=== PATIENT | female | born 1985 | race Caucasian/White ===

== ENCOUNTER 2019-10-08 22:48 | Emergency (ER) | payer MEDICAID ==
[~2019-10-08] VITALS: Ht 165.1 cm; Wt 55.0 kg
[2019-10-08 23:28] VITALS: BP 127/85
[2019-10-08] MEDS ORDERED: DOXY100C43 PO (23:53)
[2019-10-08] MEDS ORDERED: LIDOcaine 1% w/epiNEPHrine 1:200,000 30ml vial IM ONE (23:55)
== END 2019-10-09 00:22 | disposition home or self-care (01) ==
LOC: ER 22:49
DX: L02.413 Cutaneous abscess of right upper limb (principal); F15.90 Other stimulant use, unspecified, uncomplicated; Z79.899 Other long term (current) drug therapy; Z88.2 Allergy status to sulfonamides; Z88.8 Allergy status to other drugs, medicaments and biological substances
CPT/HCPCS: 10060; 99283

== ENCOUNTER 2020-12-08 14:30 | Inpatient (IN) | payer MEDICAID ==
[~2020-12-08] VITALS: Ht 165.1 cm; Wt 57.9 kg
[2020-12-08] MEDS ORDERED: vancomycin/NS 1 GM ADD-VANTAGE 250 ML IV ONE (15:30)
[2020-12-08] MEDS ORDERED: normal saline 1000ML IV soln IVB ONE (15:30)
--- NOTE | 2020-12-08 16:16 | NUR ---
Pt difficult IV stick due to hx of IV drug use/wounds. PICC RN at bedside to start line
[2020-12-08 16:47] LABS: BASOPHILS # (AUTO) 0.1 X10'3 (0-0.2); BASOPHILS % (AUTO) 1.1 % (0-1); EOSINOPHILS % (AUTO) 0 % (0-6); HEMOGLOBIN 9.3 g/dl (12.0-16.0); LYMPHOCYTES # (AUTO) 0.9 X10'3 (1.1-4.8); LYMPHOCYTES % (AUTO) 9.3 % (21-51); MEAN CORPUSCULAR HEMOGLOBIN 23.8 PG (27.0-31.0); MEAN CORPUSCULAR HGB CONC 32.1 g/dL (33.0-36.5); MEAN CORPUSCULAR VOLUME 74.4 FL (78-98); MEAN PLATELET VOLUME 7.4 FL (7.4-10.4); MONOCYTES # (AUTO) 0.3 X10'3 (0-0.9); MONOCYTES % (AUTO) 2.7 % (2-12); NEUTROPHILS # (AUTO) 8.4 X10'3 (1.8-7.7); NEUTROPHILS % (AUTO) 86.9 % (42-75); PLATELET COUNT 474 X10'3 (140-440); RED BLOOD COUNT 3.89 X10'6 (4.20-5.60); RED CELL DISTRIBUTION WIDTH 17.6 % (11.5-14.5); WHITE BLOOD COUNT 9.7 X10'3 (4.5-11.0)
[2020-12-08 16:57] LABS: D-DIMER 0.94 MG/L FEU (0-0.50); PARTIAL THROMBOPLASTIN TIME 31 SECONDS (22-32)
[2020-12-08 17:10] LABS: ALANINE AMINOTRANSFERASE 12 U/L (12-78); ALBUMIN 2.6 G/DL (3.4-5.0); ALBUMIN/GLOBULIN RATIO 0.5 (1.1-1.5); ALKALINE PHOSPHATASE 121 IU/L (46-116); ANION GAP 7 (8-16); ASPARTATE AMINO TRANSFERASE 16 U/L (10-37); BILIRUBIN,TOTAL 0.2 MG/DL (0.1-1.0); BLOOD UREA NITROGEN 4 MG/DL (7-18); CALCIUM 8.7 MG/DL (8.5-10.1); CHLORIDE 106 MMOL/L (99-107); CREATININE 0.67 MG/DL (0.40-0.90); GLUCOSE 111 MG/DL (70-104); POTASSIUM 3.9 MMOL/L (3.5-5.1); SODIUM 142 MMOL/L (135-145); TOTAL CARBON DIOXIDE 29.2 MMOL/L (24-32); TOTAL PROTEIN 7.7 G/DL (6.4-8.2); eGFR > 90 ML/MIN
[2020-12-08 17:12] LABS: CLARITY,URINE CLEAR (Clear); COLOR,URINE STRAW (Yellow); GLUCOSE, URINE NEGATIVE (Neg); KETONES,URINE NEGATIVE (Neg); LEUKOCYTE ESTERASE ,URINE NEGATIVE (Neg); NITRITES, URINE NEGATIVE (Neg); OCCULT BLOOD,URINE NEGATIVE (Neg); PROTEIN,URINE NEGATIVE (Neg); UROBILINOGEN,URINE 0.2 E.U/dL (0.2-1.0)
[2020-12-08 17:12] LABS: HCG SERUM QL NEGATIVE
[2020-12-08 17:14] LABS: UA COLLECTION TYPE CLN CATCH MIDSTREAM
[2020-12-08 17:22] LABS: C-REACTIVE PROTEIN 3.59 MG/DL (0.0-0.5); CREATINE KINASE 17 U/L (26-192); MAGNESIUM 2.2 MG/DL (1.5-2.4)
[2020-12-08 17:37] LABS: URINE AMPHETAMINE SCREEN NEGATIVE (Neg); URINE BARBITUATE SCREEN NEGATIVE (Neg); URINE BENZODIAZEPINES SCREEN NEGATIVE (Neg); URINE CANNABINOID SCREEN NEGATIVE (Neg); URINE COCAINE SCREEN POSITIVE (Neg); URINE METHADONE SCREEN NEGATIVE (Neg); URINE OPIATE SCREEN POSITIVE (Neg); URINE PHENCYCLIDINE SCREEN NEGATIVE (Neg)
[2020-12-08] MEDS ORDERED: buprenorphine/naloxone 8MG-2MG SUBlingual film SL SCH (18:40)
[2020-12-08] MEDS ORDERED: buprenorphine/naloxone 8MG-2MG SUBlingual film SL ONE (18:40)
[2020-12-08] MEDS ORDERED: HYDROmorphone 2mg tablet PO PRN (19:10)
[2020-12-08] MEDS ORDERED: magnesium Cl slow-release 64mg tablet PO PRN (19:50)
[2020-12-08] MEDS ORDERED: potassium Cl 20 mEq SR tablet PO PRN ×2 (19:50)
[2020-12-08] MEDS ORDERED: mag hydrox/Alum hydrox/simeth 30ml oral suspension PO PRN (19:50)
[2020-12-08] MEDS ORDERED: magnesium 4gm in 100ml NS 100 ML IV PRN (19:50)
[2020-12-08] MEDS ORDERED: potassium Cl 40MEQ/1/2NS 520ml 520 ML IV PRN ×2 (19:50)
[2020-12-08] MEDS ORDERED: diphenhydrAMINE 25mg capsule PO PRN (19:50)
[2020-12-08] MEDS ORDERED: bisacodyl 10mg suppository rectal RC PRN (19:50)
[2020-12-08] MEDS ORDERED: acetaminophen 325mg tablet PO PRN ×2 (19:50)
[2020-12-08] MEDS ORDERED: diphenhydrAMINE 50 mg/ml inj IV PRN (19:50)
[2020-12-08] MEDS ORDERED: magnesium hydroxide 30ml (MOM) UD suspension PO PRN (19:50)
[2020-12-08] MEDS ORDERED: magnesium 2GM in 50ml NS 50 ML IV PRN (19:50)
[2020-12-08] MEDS ORDERED: metoclopramide 5 mg/ml inj IV PRN (19:50)
--- NOTE | 2020-12-08 20:17 | NUR ---
Pt complaint of pain, gave Dilaudid PRN 2mg. Pt assisted to commode.
[2020-12-08] MEDS ORDERED: temazepam 15mg capsule PO PRN (21:00)
--- NOTE | 2020-12-08 21:16 | NUR ---
Patient in room ED 12. I have received report from Nuria NORTH and had the opportunity to ask questions and assume patient care.
[2020-12-08] MEDS: K and/or MAG REPLACEMENT MC SCH (21:30)
[2020-12-08] MEDS: normal saline 1000ml 1,000 ML IV SCH (21:49)
[2020-12-08 22:00] VITALS: BP 130/50
[2020-12-08] MEDS: piperacillin/tazo 3.375gm/50ml 50 ML IV SCH (23:55)
[2020-12-09] VITALS: BP 161/50
[2020-12-09 00:50] VITALS: BP 114/63
[2020-12-09] MEDS ORDERED: LORazepam 1 MG tablet PO PRN (01:15)
[2020-12-09] MEDS: HYDROcodone/acetaminophen 5mg/325mg tablet PO PRN ×2 (01:32→08:23)
[2020-12-09] MEDS: ondansetron/PF 4mg/2ml inj IV PRN ×3 (01:34→22:41)
[2020-12-09] MEDS ORDERED: loperamide 2mg capsule PO ONE (04:40)
[2020-12-09] MEDS ORDERED: naloxone 0.4 mg/ml inj IV PRN (04:40)
[2020-12-09] MEDS ORDERED: ondansetron 4mg rapidly disintigrating tab PO PRN (04:40)
[2020-12-09] MEDS ORDERED: cyclobenzaprine 10mg tablet PO PRN (04:40)
[2020-12-09] MEDS ORDERED: LORazepam 2 mg/ml vial IV PRN (04:40)
[2020-12-09] MEDS ORDERED: diphenhydrAMINE 25mg capsule PO PRN (04:40)
[2020-12-09] MEDS ORDERED: baclofen 10mg tablet PO PRN (04:40)
[2020-12-09] MEDS ORDERED: metoclopramide 5 mg/ml inj IV PRN (04:40)
[2020-12-09] MEDS ORDERED: acetaminophen 325mg tablet PO PRN ×2 (04:40)
[2020-12-09] MEDS ORDERED: ondansetron/PF 4mg/2ml inj IV PRN (04:40)
[2020-12-09] MEDS ORDERED: loperamide 2mg capsule PO PRN (04:40)
[2020-12-09] MEDS: vancomycin/NS 1 GM ADD-VANTAGE 250 ML IV SCH ×2 (05:08→18:47)
--- NOTE | 2020-12-09 06:38 | NUR ---
Problems reprioritized. Patient report given, questions answered & plan of care reviewed with Zbigniew RN.
--- NOTE | 2020-12-09 07:01 | NUR ---
Patient in room [facility] 354. I have received report from Monika NORTH and had the opportunity to ask questions and assume patient care.
[2020-12-09 07:31] VITALS: BP 135/59
[2020-12-09] MEDS: K and/or MAG REPLACEMENT MC SCH ×2 (08:00→19:23)
[2020-12-09] MEDS: enoxaparin 40mg/0.4ml syringe SUBCUT SCH (08:34)
[2020-12-09] MEDS: cloNIDine 0.1 mg tablet PO SCH ×4 (08:35→19:35)
[2020-12-09 08:57] LABS: ALANINE AMINOTRANSFERASE 11 U/L (12-78); ALBUMIN 2.4 G/DL (3.4-5.0); ALBUMIN/GLOBULIN RATIO 0.5 (1.1-1.5); ALKALINE PHOSPHATASE 107 IU/L (46-116); ANION GAP 10 (8-16); ASPARTATE AMINO TRANSFERASE 11 U/L (10-37); BILIRUBIN,TOTAL 0.2 MG/DL (0.1-1.0); BLOOD UREA NITROGEN 2 MG/DL (7-18); BUN/CREATININE RATIO 2.3 (6.6-38.0); CALCIUM 8.3 MG/DL (8.5-10.1); CHLORIDE 107 MMOL/L (99-107); CREATININE 0.86 MG/DL (0.40-0.90); GLUCOSE 158 MG/DL (70-104); POTASSIUM 3.5 MMOL/L (3.5-5.1); SODIUM 141 MMOL/L (135-145); TOTAL CARBON DIOXIDE 24.4 MMOL/L (24-32); TOTAL PROTEIN 7.2 G/DL (6.4-8.2); eGFR 76 ML/MIN
[2020-12-09] MEDS: normal saline 1000ml 1,000 ML IV SCH (10:08)
[2020-12-09] MEDS: piperacillin/tazo 3.375gm/50ml 50 ML IV SCH ×2 (10:39→16:26)
[2020-12-09 10:49] LABS: BASOPHILS % (AUTO) 0.4 % (0-1); EOSINOPHILS % (AUTO) 0.3 % (0-6); HEMATOCRIT 27.8 % (35.0-45.0); HEMOGLOBIN 8.9 g/dl (12.0-16.0); LYMPHOCYTES # (AUTO) 1.5 X10'3 (1.1-4.8); LYMPHOCYTES % (AUTO) 23.9 % (21-51); MEAN CORPUSCULAR HEMOGLOBIN 23.7 PG (27.0-31.0); MEAN PLATELET VOLUME 7.4 FL (7.4-10.4); MONOCYTES # (AUTO) 0.3 X10'3 (0-0.9); MONOCYTES % (AUTO) 4.9 % (2-12); NEUTROPHILS # (AUTO) 4.3 X10'3 (1.8-7.7); NEUTROPHILS % (AUTO) 70.5 % (42-75); PLATELET COUNT 426 X10'3 (140-440); RED BLOOD COUNT 3.75 X10'6 (4.20-5.60); WHITE BLOOD COUNT 6.1 X10'3 (4.5-11.0)
[2020-12-09 11:00] VITALS: BP 122/70
[2020-12-09] MEDS ORDERED: NO HOME MEDS (13:57)
--- NOTE | 2020-12-09 18:57 | NUR ---
Problems reprioritized. Patient report given, questions answered & plan of care reviewed with Monika NORTH.
[2020-12-09 19:00] VITALS: BP 141/69
--- NOTE | 2020-12-09 21:10 | NUR ---
Patient in room [facility] 354. I have received report from Zbigniew NORTH and had the opportunity to ask questions and assume patient care.
[2020-12-09] MEDS: traZODone 50mg tablet PO SCH (22:46)
[2020-12-10] VITALS: BP 139/57
[2020-12-10] MEDS: piperacillin/tazo 3.375gm/50ml 50 ML IV SCH ×3 (00:21→15:55)
[2020-12-10] MEDS: cloNIDine 0.1 mg tablet PO SCH ×6 (00:22→19:46)
[2020-12-10] MEDS: normal saline 1000ml 1,000 ML IV SCH ×3 (00:26→19:46)
[2020-12-10] MEDS ORDERED: VANCOMYCIN LEVEL IV ONE (04:30)
[2020-12-10 04:31] LABS: BASOPHILS % (AUTO) 0.5 % (0-1); EOSINOPHILS % (AUTO) 0 % (0-6); HEMATOCRIT 29.3 % (35.0-45.0); HEMOGLOBIN 9.3 g/dl (12.0-16.0); LYMPHOCYTES # (AUTO) 1.1 X10'3 (1.1-4.8); LYMPHOCYTES % (AUTO) 13.2 % (21-51); MEAN CORPUSCULAR HEMOGLOBIN 23.4 PG (27.0-31.0); MEAN CORPUSCULAR HGB CONC 31.9 g/dL (33.0-36.5); MEAN CORPUSCULAR VOLUME 73.5 FL (78-98); MEAN PLATELET VOLUME 7.5 FL (7.4-10.4); MONOCYTES # (AUTO) 0.3 X10'3 (0-0.9); NEUTROPHILS % (AUTO) 82.3 % (42-75); PLATELET COUNT 545 X10'3 (140-440); RED BLOOD COUNT 3.98 X10'6 (4.20-5.60); RED CELL DISTRIBUTION WIDTH 17.5 % (11.5-14.5); WHITE BLOOD COUNT 8.5 X10'3 (4.5-11.0)
[2020-12-10 04:42] LABS: ALANINE AMINOTRANSFERASE 10 U/L (12-78); ALBUMIN 2.7 G/DL (3.4-5.0); ALBUMIN/GLOBULIN RATIO 0.5 (1.1-1.5); ALKALINE PHOSPHATASE 109 IU/L (46-116); ANION GAP 9 (8-16); ASPARTATE AMINO TRANSFERASE 9 U/L (10-37); BILIRUBIN,TOTAL 0.3 MG/DL (0.1-1.0); BLOOD UREA NITROGEN 8 MG/DL (7-18); BUN/CREATININE RATIO 8.1 (6.6-38.0); CALCIUM 8.6 MG/DL (8.5-10.1); CHLORIDE 105 MMOL/L (99-107); CREATININE 0.99 MG/DL (0.40-0.90); GLUCOSE 124 MG/DL (70-104); POTASSIUM 3.4 MMOL/L (3.5-5.1); SODIUM 140 MMOL/L (135-145); TOTAL CARBON DIOXIDE 26.2 MMOL/L (24-32); TOTAL PROTEIN 7.9 G/DL (6.4-8.2); eGFR 64 ML/MIN
[2020-12-10 04:43] LABS: MAGNESIUM 2.1 MG/DL (1.5-2.4); VANCOMYCIN,TROUGH 15.3 UG/ML (6.0-14.0)
[2020-12-10] MEDS: vancomycin/NS 1 GM ADD-VANTAGE 250 ML IV SCH ×2 (04:53→19:46)
[2020-12-10] MEDS: HYDROcodone/acetaminophen 5mg/325mg tablet PO PRN ×2 (05:03→15:53)
[2020-12-10 07:00] VITALS: BP 147/57
[2020-12-10] MEDS: K and/or MAG REPLACEMENT MC SCH ×2 (08:00→19:56)
[2020-12-10] MEDS: enoxaparin 40mg/0.4ml syringe SUBCUT SCH (08:29)
[2020-12-10] MEDS: ondansetron/PF 4mg/2ml inj IV PRN ×2 (10:14→20:02)
[2020-12-10 11:00] VITALS: BP 130/62
--- NOTE | 2020-12-10 11:30 | NUR ---
Patient in room [facility] 354c. I have received report from Monika Ruby RN and had the opportunity to ask questions and assume patient care.
--- NOTE | 2020-12-10 11:40 | NUR ---
Problems reprioritized. Patient report given, questions answered & plan of care reviewed with Prerna NORTH.
--- NOTE | 2020-12-10 18:15 | NUR ---
Patient report given, questions answered & plan of care reviewed with Ana Perez RN.
--- NOTE | 2020-12-10 18:30 | NUR ---
Patient in room [facility] 354. I have received report from JOSÉ MIGUEL NORTH and had the opportunity to ask questions and assume patient care.
[2020-12-10] MEDS: traZODone 50mg tablet PO SCH (19:46)
[2020-12-10 20:00] VITALS: BP 112/51
[2020-12-11] VITALS: BP 127/58
[2020-12-11] MEDS: HYDROcodone/acetaminophen 5mg/325mg tablet PO PRN ×2 (00:50→05:24)
[2020-12-11] MEDS: cloNIDine 0.1 mg tablet PO SCH ×2 (00:50→04:08)
[2020-12-11] MEDS: piperacillin/tazo 3.375gm/50ml 50 ML IV SCH ×4 (00:51→23:52)
[2020-12-11] MEDS: ondansetron/PF 4mg/2ml inj IV PRN ×2 (04:03→20:43)
[2020-12-11] MEDS: vancomycin/NS 1 GM ADD-VANTAGE 250 ML IV SCH ×2 (05:24→17:13)
[2020-12-11 06:22] LABS: BASOPHILS % (AUTO) 0.6 % (0-1); EOSINOPHILS % (AUTO) 0.1 % (0-6); HEMATOCRIT 27.3 % (35.0-45.0); HEMOGLOBIN 8.8 g/dl (12.0-16.0); LYMPHOCYTES # (AUTO) 1.8 X10'3 (1.1-4.8); LYMPHOCYTES % (AUTO) 23.3 % (21-51); MEAN CORPUSCULAR HEMOGLOBIN 23.5 PG (27.0-31.0); MEAN CORPUSCULAR HGB CONC 32.4 g/dL (33.0-36.5); MEAN CORPUSCULAR VOLUME 72.4 FL (78-98); MEAN PLATELET VOLUME 7.5 FL (7.4-10.4); MONOCYTES # (AUTO) 0.5 X10'3 (0-0.9); MONOCYTES % (AUTO) 6.6 % (2-12); NEUTROPHILS # (AUTO) 5.3 X10'3 (1.8-7.7); NEUTROPHILS % (AUTO) 69.4 % (42-75); PLATELET COUNT 418 X10'3 (140-440); RED BLOOD COUNT 3.76 X10'6 (4.20-5.60); RED CELL DISTRIBUTION WIDTH 17.5 % (11.5-14.5); WHITE BLOOD COUNT 7.6 X10'3 (4.5-11.0)
--- NOTE | 2020-12-11 06:24 | NUR ---
Problems reprioritized. Patient report given, questions answered & plan of care reviewed with ANANTH NORTH.
[2020-12-11 06:38] LABS: ALANINE AMINOTRANSFERASE 17 U/L (12-78); ALBUMIN 2.3 G/DL (3.4-5.0); ALBUMIN/GLOBULIN RATIO 0.5 (1.1-1.5); ALKALINE PHOSPHATASE 96 IU/L (46-116); ANION GAP 8 (8-16); ASPARTATE AMINO TRANSFERASE 29 U/L (10-37); BILIRUBIN,TOTAL 0.4 MG/DL (0.1-1.0); BLOOD UREA NITROGEN 9 MG/DL (7-18); BUN/CREATININE RATIO 7.7 (6.6-38.0); CALCIUM 8.2 MG/DL (8.5-10.1); CHLORIDE 109 MMOL/L (99-107); CREATININE 1.17 MG/DL (0.40-0.90); GLUCOSE 117 MG/DL (70-104); POTASSIUM 3.8 MMOL/L (3.5-5.1); SODIUM 141 MMOL/L (135-145); TOTAL CARBON DIOXIDE 24.5 MMOL/L (24-32); TOTAL PROTEIN 6.7 G/DL (6.4-8.2); eGFR 53 ML/MIN
--- NOTE | 2020-12-11 06:50 | NUR ---
Patient in room [facility] 354. I have received report from Nakul NORTH and had the opportunity to ask questions and assume patient care.
[2020-12-11 07:00] VITALS: BP 114/61
[2020-12-11] MEDS ORDERED: cloNIDine 0.1 mg tablet PO SCH (08:00)
[2020-12-11] MEDS: K and/or MAG REPLACEMENT MC SCH ×2 (08:00→20:00)
[2020-12-11] MEDS: enoxaparin 40mg/0.4ml syringe SUBCUT SCH (08:09)
[2020-12-11] MEDS: metoclopramide 5 mg/ml inj IV PRN ×2 (08:19→17:25)
[2020-12-11] MEDS: LORazepam 1 MG tablet PO PRN ×2 (08:20→17:25)
[2020-12-11 11:00] VITALS: BP 117/65
[2020-12-11] MEDS: HYDROcodone/acetaminophen 10/325mg tab PO PRN ×2 (12:52→20:44)
[2020-12-11] MEDS: normal saline 1000ml 1,000 ML IV SCH (12:53)
--- NOTE | 2020-12-11 18:43 | NUR ---
patient appeared much more rested and took part in conversation following ativan given this am see emar. Extended PIV placed in left FA by PICC nurse. ABX infusing bilat arms. dressings changed bilat arms and right ankle. Patient seen by DR reyes. BM x1, able to ambulate to BR x3. Report given to Nakul NORTH
--- NOTE | 2020-12-11 18:45 | NUR ---
Patient in room [facility] 354. I have received report from ANANTH NORTH and had the opportunity to ask questions and assume patient care.
[2020-12-11 20:00] VITALS: BP 109/52
[2020-12-11] MEDS: traZODone 50mg tablet PO SCH (20:43)
[2020-12-12] MEDS: metoclopramide 5 mg/ml inj IV PRN ×2 (01:31→14:44)
[2020-12-12] MEDS: ondansetron/PF 4mg/2ml inj IV PRN ×2 (04:23→10:44)
[2020-12-12] MEDS: normal saline 1000ml 1,000 ML IV SCH ×2 (04:25→13:07)
[2020-12-12] MEDS: vancomycin/NS 1 GM ADD-VANTAGE 250 ML IV SCH (04:33)
[2020-12-12 04:42] LABS: BASOPHILS # (AUTO) 0.1 X10'3 (0-0.2); BASOPHILS % (AUTO) 0.6 % (0-1); EOSINOPHILS % (AUTO) 0.4 % (0-6); HEMATOCRIT 30.3 % (35.0-45.0); HEMOGLOBIN 9.7 g/dl (12.0-16.0); LYMPHOCYTES # (AUTO) 1.5 X10'3 (1.1-4.8); LYMPHOCYTES % (AUTO) 16.4 % (21-51); MEAN CORPUSCULAR HEMOGLOBIN 23.6 PG (27.0-31.0); MEAN CORPUSCULAR HGB CONC 31.9 g/dL (33.0-36.5); MEAN PLATELET VOLUME 7.6 FL (7.4-10.4); MONOCYTES # (AUTO) 0.5 X10'3 (0-0.9); MONOCYTES % (AUTO) 5.6 % (2-12); NEUTROPHILS # (AUTO) 7.1 X10'3 (1.8-7.7); PLATELET COUNT 501 X10'3 (140-440); RED BLOOD COUNT 4.09 X10'6 (4.20-5.60); RED CELL DISTRIBUTION WIDTH 17.8 % (11.5-14.5); WHITE BLOOD COUNT 9.2 X10'3 (4.5-11.0)
[2020-12-12 04:57] LABS: ALANINE AMINOTRANSFERASE 17 U/L (12-78); ALBUMIN 2.5 G/DL (3.4-5.0); ALBUMIN/GLOBULIN RATIO 0.6 (1.1-1.5); ALKALINE PHOSPHATASE 95 IU/L (46-116); ANION GAP 8 (8-16); ASPARTATE AMINO TRANSFERASE 20 U/L (10-37); BILIRUBIN,TOTAL 0.3 MG/DL (0.1-1.0); BLOOD UREA NITROGEN 7 MG/DL (7-18); BUN/CREATININE RATIO 5.7 (6.6-38.0); CALCIUM 7.9 MG/DL (8.5-10.1); CHLORIDE 107 MMOL/L (99-107); CREATININE 1.22 MG/DL (0.40-0.90); GLUCOSE 101 MG/DL (70-104); POTASSIUM 3.2 MMOL/L (3.5-5.1); SODIUM 140 MMOL/L (135-145); TOTAL CARBON DIOXIDE 25.5 MMOL/L (24-32); TOTAL PROTEIN 6.9 G/DL (6.4-8.2); eGFR 50 ML/MIN
[2020-12-12] MEDS: LORazepam 1 MG tablet PO PRN (06:32)
--- NOTE | 2020-12-12 06:32 | NUR ---
Problems reprioritized. Patient report given, questions answered & plan of care reviewed with KHUSHBOO NORTH.
[2020-12-12 07:30] VITALS: BP 149/69
[2020-12-12] MEDS: K and/or MAG REPLACEMENT MC SCH (07:46)
[2020-12-12] MEDS: piperacillin/tazo 3.375gm/50ml 50 ML IV SCH (07:46)
[2020-12-12] MEDS: enoxaparin 40mg/0.4ml syringe SUBCUT SCH (07:47)
[2020-12-12] MEDS ORDERED: magnesium Cl slow-release 64mg tablet PO PRN (09:15)
[2020-12-12] MEDS ORDERED: potassium Cl 40MEQ/1/2NS 520ml 520 ML IV PRN (09:15)
[2020-12-12] MEDS ORDERED: potassium Cl 20 mEq SR tablet PO PRN ×2 (09:15)
[2020-12-12] MEDS ORDERED: magnesium 4gm in 100ml NS 100 ML IV PRN (09:15)
[2020-12-12] MEDS: HYDROcodone/acetaminophen 10/325mg tab PO PRN (10:42)
[2020-12-12 11:42] VITALS: BP 152/85
[2020-12-12] MEDS ORDERED: HYDR-3965 PO (12:08)
[2020-12-12] MEDS ORDERED: ONDA4TAB6 PO (12:08)
[2020-12-12] MEDS ORDERED: AMPI500C11 PO (12:08)
--- NOTE | 2020-12-12 14:54 | NUR ---
patient stable and appropriate for discharge home. IV x2 removed. All belongings taken from home. patient returned a demonstration of proper wound dressing changes. She was sent with an adequate amount of wound care supplies. new prescriptions were transmitted to preferred pharmacy. all discharge education and instructions given and reviewed with patient, all questions answered. patient is aware of next due doses on all medications, and the importance of establishing a follow up appointment.
[2020-12-12] MEDS ORDERED: K and/or MAG REPLACEMENT MC SCH (20:00)
[2020-12-13] MEDS ORDERED: cloNIDine 0.1 mg tablet PO SCH (08:00)
[2020-12-14] MEDS ORDERED: traZODone 50mg tablet PO PRN (04:40)
== END 2020-12-12 14:52 | disposition home or self-care (01) | DRG 383 ==
LOC: ER 14:31 → ED HOLD 19:48 → SUR 3N 21:41
PROVIDERS: ADMIT Family Medicine; ATTEND Family Medicine
DX: L03.115 Cellulitis of right lower limb (principal); L03.113 Cellulitis of right upper limb; F11.10 Opioid abuse, uncomplicated; L03.114 Cellulitis of left upper limb; Z90.721 Acquired absence of ovaries, unilateral; F14.10 Cocaine abuse, uncomplicated; L91.0 Hypertrophic scar; S81.851A Open bite, right lower leg, initial encounter; W55.01XA Bitten by cat, initial encounter; R00.1 Bradycardia, unspecified
CPT/HCPCS: 36415; 71045; 76937; 80053; 80202; 80305; 81003; 82550; 82553; 83605; 83735; 83874; 83880; 84145; 84484; 84703; 85025; 85379; 85610; 85730; 86140; 87040; 87070; 87075; 87077; 87081; 87102; 87186; 93005; 93306; 93308; 96365; 96366; 99285; G0378; J1650; J2060; J2405; J2543; J2765; J3370; J7030

== ENCOUNTER 2025-09-06 20:50 | Inpatient (IN) | payer MEDICAID ==
[~2025-09-06] VITALS: Ht 165.1 cm; Wt 68.2 kg
[~2025-09-06 20:50] MED LIST: ONDA4TAB6 PO
--- NOTE | 2025-09-06 21:59 | Physician Documentation ---
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 She normally sees wound care at [facility], and was supposed to change her dressings every other day, however due to increased drainage she had to change her dressings up to 4 times a day especially in the right foot. The pain is so bad to the point that she is no longer able to ambulate in the right foot. Palliated with the position of comfort. Ibuprofen and Tylenol are not helping. Denies any fever or chills. She denies any current drug use, does report history of drug use in the past. Tetanus within 5 years?: Yes Medication Reconciliation Allergies: Coded Allergies: Sulfa (Sulfonamide Antibiotics) (Verified Allergy, Severe, Hives, 10/08/19) guaifenesin (Verified Allergy, Severe, Hives, 10/08/19) Scheduled PRN Ondansetron Hcl (Zofran), 4 MG PO Q8H PRN for nausea Past Medical History Past Medical History: No Pertinent History Past Surgical History: noncontributory Alcohol Use: None Drug Use: methamphetamine Lives In: Home Review of Systems ROS 10 point review of systems was performed and unless noted above in HPI is negative for acute process/complaint. Physical Exam Vital Signs: Temperature: 98.8, Source: Oral, Heart Rate: 87, Respiratory Rate: 18, BP: 104/68, Pulse Oximetry: 100, Weight: 68.180 Oxygen Flow Rate: 0 Physical Exam Physical examination: GENERAL: Awake, alert, oriented, GCS 15, no apparent distress, non-toxic appearing, answers questions, follows commands appropriately. Examined in bed number 18 HEENT: Atraumatic, normocephalic, pupils equal, extraocular muscles intact Active gross movements, sclerae anicteric, mucus membranes moist, no stridor. NECK: Midline, no JVD CARDIOVASCULAR: Good skin perfusion without evidence of pallor, mottling. PULMONARY: Nonlabored, symmetric chest rise, no audible wheezing, no accessory muscle use, no respiratory distress, speaking in full sentences. GASTROINTESTINAL: Not distended. NEUROLOGIC: Lucid with normal mental status. Normal facial symmetry. Moves all extremities symmetrically and with purpose. No truncal ataxia. Speech is fluid without evidence of dysarthria or aphasia, no focal deficits appreciated. EXTREMITIES: Acute deformities Skin: warm, dry PSYCHIATRIC: Normal affect, normal insight, normal concentration. Focused exam: [Left foot is examined. There is a large oval wound approximately 6 by 3.5 cm with a surrounding erythema and calor all worried the left medial ankle. There appears to be yellow discharge from the wound. Neurovascularly baseline otherwise. Right foot is examined. There is 10 cm x 3 cm dorsal wound with a yellow discharge. Surrounding erythema and calor noted.] Progress Results/Orders Results/Orders Orders - KODAK POWER DO Foot,Limited (Ap/Lat) (09/06/25 21:50) Ankle,Limited (Ap/Lat) (09/06/25 21:50) Hcg, Ur Ql (09/06/25 21:50) Piperacillin/Tazo 4.5gm/100ml (Zosyn 4.5 (09/07/25 00:00) Vancomycin 1gm 200ml H20 (Peg) (Vancomyc (09/07/25 00:00) Normal Saline 1000ml (0.9% Sodium Chlori (09/07/25 00:00) Page Hospitalist (09/06/25 23:56) Fill Out Med Reconciliation (09/06/25 23:56) Completed Orders - KODAK POWER DO Foot,Limited (Ap/Lat) (09/06/25 21:50) Ankle,Limited (Ap/Lat) (09/06/25 21:50) Hydrocodone/Apap 5/325mg Tab ([place] 5/32 (09/06/25 21:50) Hcg Serum Ql (09/06/25 21:50) Cbc/Diff (09/06/25 21:50) ESR (09/06/25 21:50) C-Reactive Protein (09/06/25 21:50) CMP (09/06/25 21:50) Medications Received in ER Medications (Trade) Dose Ordered Sig/Ash Route PRN Reason Start Time Stop Time Status Last Admin Dose Admin ([place] 5/325mg tablet) 1 tab ONCE ONCE PO 09/06/25 21:50 09/06/25 21:53 DC 09/06/25 22:58 1 TAB Vital Signs 09/06/25 09/06/25 21:03 22:58 Temp 98.8 Pulse 87 Resp 18 18 B/P (MAP) 104/68 Pulse Ox 100 O2 Flow Rate 0 Laboratory Tests Test 09/06/25 22:23 White Blood Count 5.8 Red Blood Count 5.27 Hemoglobin 10.8 L Hematocrit 34.3 L Mean Corpuscular Volume 65.0 L Mean Corpuscular Hemoglobin 20.5 L Mean Corpuscular Hemoglobin Concent 31.5 L Red Cell Distribution Width 17.8 H Platelet Count 297 Mean Platelet Volume 7.6 Neutrophils (%) (Auto) 79.3 H Lymphocytes (%) (Auto) 13.0 L Monocytes (%) (Auto) 6.6 Eosinophils (%) (Auto) 0.8 Basophils (%) (Auto) 0.3 Neutrophils # (Auto) 4.6 Lymphocytes # (Auto) 0.8 L Monocytes # (Auto) 0.4 Eosinophils # (Auto) 0.0 Basophils # (Auto) 0.0 CBC Comment Platelet Estimate Normal Red Blood Cell Morphology Perf Basophilic Stippling Anisocytosis 1+ Microcytosis 2+ Erythrocyte Sedimentation Rate 26 H Sodium Level 136 Potassium Level 3.6 Chloride Level 101 Carbon Dioxide Level 31.0 Anion Gap 4 L Blood Urea Nitrogen 6 L Creatinine 0.76 Estimated GFR/1.73 m2 85 BUN/Creatinine Ratio 7.9 L Glucose Level 106 H Calcium Level 8.6 Total Bilirubin 0.2 Aspartate Amino Transf (AST/SGOT) 39 H Alanine Aminotransferase (ALT/SGPT) 30 Alkaline Phosphatase 162 H C-Reactive Protein 3.93 H Total Protein 8.1 Albumin 3.1 L Globulin 5.0 H Albumin/Globulin Ratio 0.6 L Human Chorionic Gonadotropin, Qual Negative Chemistry Comments Medical Decision Making Additional information obtaine: old records, other Findings Facility Status: ED Holds, [facility] process The plan was discussed with the patient, who demonstrates clear understanding of the plan and is in agreement with the plan unless otherwise noted in the chart. All questions have been answered, all concerns were addressed unless otherwise documented. I was available throughout their ED stay for frequent reassessment and questions. Differential Diagnoses (considered and possible or likely): [Cellulitis, abscess, chronic wound, osteomyelitis, less likely necrotizing infection] ??Differential Diagnoses (considered and unlikely, not requiring evaluation currently): [No evidence of trauma] MDM Data Please see HPI for the following: Independent Historians and external Records Review. Historian: [Patient] Independent Historians: ?[Record review] Medication Management: [Reviewed medication list] Social History and determinants: [Reviewed] Please see the body of the note for the following: Any independent i nterpretations of ECG, imaging studies. All vitals signs/haemodynamics, ordered tests were independently reviewed and interpreted by myself. 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 The patient is not febrile, not tachycardic, no evidence of hypotension respiratory distress. CBC shows no leukocytosis with a 80% neutrophilic predominance. Normal platelets. Anemia noted. ESR is elevated. CRP is significantly elevated. Metabolic panel is unremarkable. X-rays do not show any osteomyelitis.] Tests considered but not ordered include: [MRI can be done on an inpatient basis] Social Determinants of Health Impact: Patient was evaluated in [facility] [place] [facility] due to below par ratio of patient to medical providers. [] Comorbid Conditions Impacting Present Evaluation and Care/Treatment: [Poor peripheral circulation] Management Discussions with other Healthcare Providers: [Hospitalist regarding admission] Treatment and Disposition Medication Management (Given or considered): [Antibiotics]. See EMR for details Consideration for Hospitalization/Escalation/Deescalation of Care: Admission for observation has been necessary, for failure of outpatient management of her chronic wound, ongoing cellulitis. ?ED Course:?[No clinical deterioration] ?Shared decision making:?[] Code status:?FULL Please see the full Electronic Medical Record for full details of nursing documentation, medications list, other records of complete past medical history and conditions, vital signs, laboratory studies, and any radiologic study interpretations by radiologists. Portions of this note were completed using [employer] dictation software and as a result there may exist minor errors in spelling. I have reviewed elements of past family and social history and agree as included in note. Differential Dx:Considerations: Include: Other (See main body of the note) Departure Disposition: 09 ADMITTED INPATIENT Impression: Primary Impression: Non-healing open wound of heel Additional Impressions: Open wound of foot Wound cellulitis Condition: Stable Referrals: NO PRIMARY CARE PROVIDER (PCP) Signature Scribe Signature: No scribe Attestation: Date: Sep 06, 2025 Time: 21:57 This note accurately reflects clinical decisions, work performed by myself, [employer], KODAK MENDEZ DO Sep 06, 2025 21:58
[2025-09-06 22:36] LABS: MEAN PLATELET VOLUME 7.6 FL (7.4-10.4); RED CELL DISTRIBUTION WIDTH 17.8 % (11.5-14.5)
--- NOTE | 2025-09-06 22:40 | RADIOLOGY REPORT ---
CLINICAL INDICATION: chronic wound, worse pain, osteo TECHNIQUE: DI FOOT,LIMITED (AP/LAT), DI ANKLE,LIMITED (AP/LAT) Comparison: DI ANKLE,LIMITED (AP/LAT) on DOS: 09/06/25 FINDINGS/IMPRESSION: : There is no evidence of acute fracture or dislocation. No definite radiographic evidence of osteomyelitis. Minimal retrocalcaneal enthesopathy. Soft tissues are unremarkable.
[2025-09-06 22:45] LABS: CREATININE 0.76 MG/DL (0.40-0.90); TOTAL CARBON DIOXIDE 31.0 MMOL/L (24-32); eCRCL 89 ML/MIN; eGFR 85 ML/MIN
[2025-09-06 22:49] LABS: HCG SERUM QL NEGATIVE
[2025-09-06 22:53] LABS: PLATELET ESTIMATE NORMAL
[2025-09-06] MEDS: HYDROcodone/acetaminophen 5mg/325mg tablet PO ONE (22:58)
[2025-09-07] MEDS: normal saline 1000ML IV soln IVB ONE
[2025-09-07] MEDS: ondansetron/PF 4mg/2ml inj IV ONE (01:01)
[2025-09-07] MEDS: morphine 4 MG/ML inj SYRINge IV ONE (01:01)
[2025-09-07] MEDS: vancomycin/NS 1 GM ADD-VANTAGE 250 ML IV ONE (01:03)
[2025-09-07] MEDS ORDERED: potassium Cl 40MEQ/1/2NS 520ml 520 ML IV PRN (01:40)
[2025-09-07] MEDS ORDERED: ondansetron/PF 4mg/2ml inj IV PRN (01:40)
[2025-09-07] MEDS ORDERED: potassium Cl 20 mEq SR tablet PO PRN ×2 (01:40)
[2025-09-07] MEDS ORDERED: magnesium sulf-water 4G/100mL 100 ML IV PRN (01:40)
[2025-09-07] MEDS ORDERED: magnesium Cl slow-release 64mg tablet PO PRN (01:40)
[2025-09-07] MEDS ORDERED: magnesium sulf-water 2g/50mL 50 ML IV PRN (01:40)
[2025-09-07] MEDS ORDERED: mag hydrox/Alum hydrox/simeth 30ml oral suspension PO PRN (01:40)
--- NOTE | 2025-09-07 02:07 | HISTORY AND PHYSICAL-Residence ---
History & Physical Providers to Resident Creating Document: GRISELDA WEIR, ISAAC ~ History of Present Illness Primary Medical Doctor: none Reason for Admit\Complaint: Infected venous sounds History of Present Illness This is a 40-year-old female with history of IV drug use, chronic wound in bilateral foot came to the ER with worsening pain in the wound, increased discharge, increased redness for the last several days. She has history of venous ulcers which started in May and has been following up with [facility] every Tuesday. She dresses her wound every day, the last two days she has been doing that 4 times a day because of increased purulent discharge. She was not able to ambulate because of increased pain. She was recently on 10 day course of antibiotics, stopped last week. She was also admitted at [facility] and received IV antibiotics for few days. She has never seen a vascular surgeon. Reports fever last night. She also has scarring on her right hand because of history of IV drug abuse. Allergies: Coded Allergies: Sulfa (Sulfonamide Antibiotics) (Verified Allergy, Severe, Hives, 10/08/19) guaifenesin (Verified Allergy, Severe, Hives, 10/08/19) piperacillin (Verified Allergy, Intermediate, skin rash, burning, 09/07/25) tazobactam (Verified Allergy, Intermediate, skin rash, burning, 09/07/25) Home Medications Home Medications Active Zofran (Ondansetron Hcl) 4 Mg Tablet 4 Mg PO Q8H PRN Past Medical History Past Medical History Venous ulcers History of IV drug abuse Past Surgical History Surgical History Comment Right oophorectomy and right salpingectomy for cyst Cholecystectomy Past Social History Social History Comment Smoked from the age of [age] Alcohol occasionally History of IV drug abuse, IV heroin, attends methadone clinic 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 Alcohol Use: None Drug Use: Methamphetamine Lives In: Home ROS Constitutional: Reports: fever Eyes: Denies: no symptoms reported, see HPI, pain, discharge, blurred vision, double vision, itching, photophobia, redness, tearing, other ENT: Denies: no symptoms reported, see HPI, ear pain, ear bleeding, ear discharge, hearing loss, ear ringing, nose pain, nose bleeding, nose congestion, nose discharge, throat pain, throat swelling, voice change, mouth pain, mouth bleeding, mouth swelling, other Respiratory: Denies: no symptoms reported, see HPI, cough, orthopnea, shortness of breath, SOB with exertion, SOB at rest, stridor, wheezing, hemoptysis, pain with breathing, other Cardiovascular: Denies: no symptoms reported, see HPI, chest pain, left arm pain, diaphoresis, lightheadedness, syncope, edema, palpitations, irregular heart rate, other Gastrointestinal: Denies: no symptoms reported, see HPI, abdomen distended, abdominal pain, nausea, vomiting, diarrhea, constipated, melena, hematemesis, hematochezia, rectal bleeding, rectal pain, dysphagia, poor appetite, poor fluid intake, other Genitourinary: Denies: no symptoms reported, see HPI, burning, discharge, dysuria, frequency, flank pain, hematuria, incontinence, pain, decreased urine output, urgency, other Neurological: Denies: no symptoms reported, see HPI, speech problem, headache, dizziness, fainting, tingling, left sided numbness, right sided numbness, left sided weakness, right sided weakness, problems walking, unable to move lower ext, unable to move upper ext, petit mal seizures, tonic-clonic seizures, cognitive dysfunction, other Musculoskeletal: Denies: no symptoms reported, see HPI, pain, swelling, back pain, gout, joint pain, joint swelling, muscle pain, muscle swelling, muscle stiffness, neck pain, other Integumentary: Reports: see HPI Allergic/Immunologic: Denies: no symptoms reported, see HPI, hives, itching, frequent infections, difficulty healing, other Exam Vitals: Vital Signs Date Time Temp Pulse Resp B/P (MAP) Pulse Ox O2 Delivery O2 Flow Rate FiO2 09/07/25 00:06 16 09/06/25 21:03 98.8 87 100 0 General: Awake, alert, alert, oriented HEENT: Atraumatic, normocephalic, EOMI, anicteric sclera ; pink conjunctiva Neck: Trachea midline. Supple, full range of motion, no JVD Cardiac: Regular rhythm, with no murmurs all over the precordium. Respiratory: Bilateral breath sounds are clear. Gastrointestinal: Abdomen symmetric, non-distended, soft, non-tender, normal bowel sounds Extremity-no cyanosis, no edema, pulses 2+ in bilateral foot Neurological: No focal neurological deficits. Skin: Warm and dry Foot ulcers-, right -on the dorsum of the foot, left-at the medial malleolus. Patient refused removing the bandage so could not completely see the ulcers. Surrounding skin is tender, red and warm, surrounding skin hyperpigmentation, lipodermatosclerosis noted Diagnostic Data Last Recorded Lab Results: 09/06/25222209/06/252222 Advance Care Planning Advanced Care plannin - 30 Minutes (I spent 17 minutes in discussing various resuscitative measures, the patient chose to be full code.) Additional Plan Assessment This is a 40-year-old female with a history of IV drug abuse, chronic venous ulcers came to the ER with the complaints of increased pain, redness, purulent discharge from the wound. Plan Infected venous ulcers, failed outpatient treatment Cellulitis Right foot ulcer on the dorsum of the foot, left foot ulcer at the medial malleolus. Redness, warmth, hyperpigmentation in the surrounding skin Varicose veins not appreciated. Bilateral pulses 2+ WBC count the normal range. Elevated CRP, ESR Foot and ankle x-ray showed no signs of osteo mellitus, Bilateral pulses 2+, arterial ultrasound ordered Venous ultrasound ordered Started on vanc and Zosyn. Patient allergic to Zosyn, changed to ceftriaxone Received 1 L bolus in the ER, on NS@100 mL/hour Pain management-Tylenol, Hilmar p.r.n. Wound care consult Wound cultures. Patient might need a follow up with vascular surgeon. History of IV drug abuse History of IV heroin abuse Patient has scarring on the right forearm U tox ordered Wound care Code status: Full DVT prophylax: Heparin Diet: Regular Griselda Weir m.D PGY2 Patient discussed with resident. I agree with the H&P and assessment and plan as documented, with no changes. Lucia Ashraf MD Critical Care Date of Service: Sep 07, 2025 Billing Provider: LUCIA ASHRAF MD, PRAVAHIKA, RES Sep 07, 2025 02:07 LUCIA ASHRAF MD Sep 07, 2025 18:25
[2025-09-07] MEDS: piperacillin/tazo 4.5gm/100ml 100 ML IV ONE ×2 (02:28)
[2025-09-07] MEDS: cefepime 1GM in D5W 50mL 50 ML IV ONE ×2 (04:08)
[2025-09-07] MEDS: normal saline 1000ml 1,000 ML IV SCH (06:53)
[2025-09-07 07:35] VITALS: BP 124/74; PULSE 77; RESP 16; TEMP 99.1; O2SAT 98
[2025-09-07] MEDS: K and/or MAG REPLACEMENT MC SCH (08:00)
[2025-09-07] MEDS: heparin, porcine 5000 units/ml vial SQ SCH (08:35)
[2025-09-07] MEDS: HYDROcodone/acetaminophen 5mg/325mg tablet PO PRN (08:35)
[2025-09-07] MEDS: docusate sod 100mg capsule PO SCH (08:35)
[2025-09-07] MEDS: CefTRIAXone/D5W-Rocephin 1gm 50 ML IV SCH (08:36)
[2025-09-07] MEDS ORDERED: GABA-535 PO (08:51)
[2025-09-07] MEDS ORDERED: METH-603 PO (08:52)
[2025-09-07] MEDS ORDERED: GABA300C PO (08:54)
[2025-09-07 10:00] VITALS: BP 116/68; PULSE 70; RESP 15; TEMP 98.7; O2SAT 100
[2025-09-07] MEDS ORDERED: piperacillin/tazo 3.375gm/50ml 50 ML IV SCH (10:00)
[2025-09-07] MEDS: methadone 10mg tablet PO SCH (10:31)
--- NOTE | 2025-09-07 12:38 | VASCULAR REPORT ---
CLINICAL HISTORY: Bilateral foot wounds TECHNIQUE: Color and duplex doppler imaging of the bilateral lower extremity veins was performed. Vessel compression if possible was also performed. WID: COMPARISON: None FINDINGS: Right Lower Extremity: Right common femoral vein: Normal compressibility and flow. Right femoral vein: Normal compressibility and flow. Right popliteal vein: Normal compressibility and flow. Proximal calf veins are normally compressible. Left Lower Extremity: Left common femoral vein: Normal compressibility and flow. Left femoral vein: Normal compressibility and flow. Left popliteal vein: Normal compressibility and flow. Proximal calf veins are normally compressible. IMPRESSION: 1. NO SONOGRAPHIC EVIDENCE FOR DEEP VENOUS THROMBOSIS IN THE BILATERAL LOWER EXTREMITY VEINS.
[2025-09-07] MEDS ORDERED: VANCOMYCIN/WATER FOR INJ (PEG) 1.25GM/250 ML IVPB IV SCH (13:00)
--- NOTE | 2025-09-07 13:35 | VASCULAR REPORT ---
EXAM: VASC VL ARTERIAL INDICATION: Question stenosis TECHNIQUE: Grayscale and color Doppler sonographic imaging evaluation of the right and left lower extremity arterial system was performed COMPARISON: None available at the time of dictation. FINDINGS: RIGHT LOWER EXTREMITY ARTERIES: Common femoral artery: 158 cm/s, triphasic Deep femoral artery: 91 cm/s, triphasic Proximal femoral artery: 163 cm/s, triphasic Mid femoral artery: 133 cm/s, triphasic Distal femoral artery: 125 cm/s, triphasic Popliteal artery: 151 cm/s, triphasic Posterior tibial artery: 116 cm/s, triphasic Dorsalis pedis artery: 124 cm/s, triphasic LEFT LOWER EXTREMITY ARTERIES: Common femoral artery: 197 cm/s, triphasic Deep femoral artery: 88 cm/s, triphasic Proximal femoral artery: 174 cm/s, triphasic Mid femoral artery: 169 cm/s, triphasic Distal femoral artery: 156 cm/s, triphasic Popliteal artery: 125 cm/s, triphasic Posterior tibial artery: 118 cm/s, triphasic Dorsalis pedis artery: 100 cm/s, triphasic REFERENCE VALUES: Normal velocity ranges (in cm/sec) are as follows: 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 Stenosis categories: 1.5-2.0 x normal velocity = 30-49%, 2.0-4.0 x normal velocity = 50- 75%, >4.0 x normal velocity = >75%. IMPRESSION: 1. No sonographic evidence of a lower extremity arterial occlusion. Velocities as above.
[2025-09-07] MEDS: VANCOmycin 1250MG/NS 250ml Bag 250 ML IV SCH (13:48)
[2025-09-07 13:59] VITALS: RESP 16; O2SAT 97
[2025-09-07 16:21] LABS: URINE HCG NEGATIVE (NEG)
[2025-09-07 16:34] LABS: URINE AMPHETAMINE SCREEN POSITIVE (Neg); URINE BARBITUATE SCREEN NEGATIVE (Neg); URINE BENZODIAZEPINES SCREEN NEGATIVE (Neg); URINE CANNABINOID SCREEN NEGATIVE (Neg); URINE COCAINE SCREEN NEGATIVE (Neg); URINE METHADONE SCREEN POSITIVE (Neg); URINE OPIATE SCREEN POSITIVE (Neg); URINE PHENCYCLIDINE SCREEN NEGATIVE (Neg)
[2025-09-07 19:00] VITALS: BP 116/63; PULSE 72; RESP 18; TEMP 97.9; O2SAT 100
--- NOTE | 2025-09-07 19:55 | PROGRESS NOTE ---
Daily Progress Note Providers to CC ~ Antibiotic Timeout Antibiotic Ordered?: Yes Subjective The patient has significant scar tissue with some ulceration in the antecubital region bilaterally as well as multiple ulcerations on her feet bilaterally. The patient remains afebrile Objective Vital Signs Date Time Temp Pulse Resp B/P (MAP) Pulse Ox O2 Delivery O2 Flow Rate FiO2 09/07/25 19:42 15 09/07/25 13:59 97 Room Air 09/07/25 10:00 98.7 70 116/68 (84) 09/06/25 21:03 0 Result Diagram: 09/06/25222209/06/252222 Gen. No acute distress alert and oriented 4 Lungs clear to ascultation bilaterally, no wheezes rales or rhonchi appreciated Heart normal sinus rhythm no murmurs rubs or clicks noted Abdomen soft nontender bowel sounds are normoactive Lower extremities no clubbing cyanosis, nor edema appreciated bilaterally Skins significant scar tissue with some ulceration in the antecubital region bilaterally as well as multiple ulcerations on her feet bilaterally Problem\Assessment\Plan Problems/Diagnosis: (1) Wound cellulitis # cellulitis of the antecubital region bilaterally, and bilateral feet # non healing wounds of the lower extremities bilaterally Continue IV vancmycin and ceftriaxone Arterial ultrasound was negative for arterial insufficiency bilaterally Venous ultrasound was negative for DVT bilaterally # angioedema of the face secondary to allergic reaction to Zosyn Significantly improved # IV heroin use disorder Continue methadone Date of Service: Sep 07, 2025 Billing Provider: KIA SAM DO Common Visit Codes: NOT BILLABLE (Admitted after midnight to be billed by make up artist) KIA SAM DO Sep 07, 2025 19:55
[2025-09-07 20:00] VITALS: RESP 18; O2SAT 100
[2025-09-07 22:00] VITALS: BP 103/53; PULSE 60; RESP 18; TEMP 98; O2SAT 100
[2025-09-08 06:36] VITALS: BP 113/73; PULSE 72; RESP 16; TEMP 97.9; O2SAT 100
[2025-09-08 06:57] LABS: CREATININE 0.70 MG/DL (0.40-0.90); TOTAL CARBON DIOXIDE 24.2 MMOL/L (24-32); eCRCL 97 ML/MIN; eGFR > 90 ML/MIN
[2025-09-08 08:00] VITALS: RESP 16; O2SAT 100
[2025-09-08 08:17] LABS: MEAN PLATELET VOLUME 8.3 FL (7.4-10.4); RED CELL DISTRIBUTION WIDTH 18.5 % (11.5-14.5)
[2025-09-08 08:22] LABS: BANDS% (MANUAL) 1.0 % (0-10); BASOPHILS % (MANUAL) 1.0 % (0-1); EOSINOPHILS % (MANUAL) 1.0 % (0-6); LYMPHOCYTES % (MANUAL) 47.0 % (21-51); MONOCYTES % (MANUAL) 13.0 % (2-12); NEUTROPHILS % (MANUAL) 36.0 % (42-75); PLATELET ESTIMATE NORMAL; REACTIVE LYMPHOCYTES % 1.0 % (0-0)
[2025-09-08 10:17] VITALS: BP 136/69; PULSE 72; RESP 15; TEMP 98.3; O2SAT 99
[2025-09-08] MEDS: VANCOMYCIN LEVEL IV ONE (12:14)
--- NOTE | 2025-09-08 17:58 | CARDIOLOGY REPORT ---
APPROVED REPORT EXAM: Comprehensive 2D, Doppler, and color-flow Echocardiogram. Patient Location: 353 [address] Heart Rate: 70's bpm Rhythm: SINUS Indications ENDOCARDITIS IV DRUG USE Refund Clerk: NONE Previous echo: [facility] 12/08/20 EF 60-65%, RVSP 35 mmHg, trMR, trTR 2D Dimensions RVDd 3.3 cm IVSd 0.9 (0.7-1.1cm) LVDd 4.5 cm PWd 0.9 (0.7-1.1cm) IVSs 1.3 (0.8-1.2cm) LVDs 3.0 (2.5-4.0cm) PWs 1.3 (0.8-1.2cm) LVOT Diameter 1.99 (1.8-2.4cm) LVEF(%) 60.4 (>50%) FS (%) 32.1 % SV 55.8 ml CO 4.1 L/min M-Mode Dimensions Left Atrium(MM) 3.16 (2.5-4.0cm) Aortic Root 2.81 (2.2-3.7cm) Aortic Cusp Exc 1.82 (1.5-2.0cm) Aortic Valve AoV Peak Omi. 136.6 cm/s AoV VTI 20.2 cm AO Peak GR. 7.5 mmHg AO Mean GR. 4 mmHg LVOT VTI 15.86 cm LVOT Peak Omi. 106.2 cm/s BREA(VTI)/BSA 2.46 cm2/m2 BREA (VTI) 2.46 cm2 AV DI 0.79 % Mitral Valve MV E Velocity 43.9 cm/s MV Peak Gr. 1 mmHg MV DECEL TIME 312 ms MV A Velocity 54.9 cm/s MV PHT 72 ms E/A Ratio 0.8 MVA (PHT) 3.06 cm2 MV VMax 58.9 cm/s TDI Medial E' P. V 15.70 cm/s E/Medial E' 2.8 Tricuspid Valve TR P. Velocity 230 cm/s RAP ESTIMATE 10 mmHg TR Peak Gr. 21 mmHg RVSP 31 mmHg LEFT VENTRICLE Normal LV size and wall thickness. Overall systolic function is normal. LVEF is 55-60%. RIGHT VENTRICLE RV is mildly dilated with normal function. Elevated right heart pressures with an RVSP of 31 mmHg. ATRIA The left atrium size is normal. AORTIC VALVE Trileaflet AV appears normal without stenosis. No insufficiency. MITRAL VALVE Mild MV annular calcification without stenosis. Trace regurgitation. TRICUSPID VALVE TV appears structurally normal with trace regurgitation. PULMONIC VALVE Normal PV without stenosis, physiologic insufficiency. GREAT VESSELS The aortic root is normal in size. PERICARDIUM Normal pericardium. No effusion. Pleural effusion is present. Other Information Study Quality: Adequate Conclusion Normal LV size and wall thickness. Overall systolic function is normal. LVEF is 55-60%. RV is mildly dilated with normal function. Elevated right heart pressures with an RVSP of 31 mmHg. The left atrium size is normal. Trileaflet AV appears normal without stenosis. No insufficiency. Mild MV annular calcification without stenosis. Trace regurgitation. TV appears structurally normal with trace regurgitation. Normal pericardium. No effusion.
[2025-09-08] MEDS: magnesium hydroxide 30ml (MOM) UD suspension PO PRN (18:52)
[2025-09-08 19:00] VITALS: RESP 18
--- NOTE | 2025-09-08 20:19 | PROGRESS NOTE ---
Daily Progress Note Providers to CC ~ Antibiotic Timeout Antibiotic Ordered?: Yes Subjective The patient continues to complain of pain in her feet the erythema is improving however in her angioedema has improved as well she still has some edema of her lower lip Objective Vital Signs Date Time Temp Pulse Resp B/P (MAP) Pulse Ox O2 Delivery O2 Flow Rate FiO2 09/08/25 17:27 14 09/08/25 10:17 98.3 72 136/69 (91) 99 Room Air 09/07/25 22:00 0.0 Result Diagram: 09/08/25 0745 09/08/25 0622 Gen. No acute distress alert and oriented 4 Lungs clear to ascultation bilaterally, no wheezes rales or rhonchi appreciated Heart normal sinus rhythm no murmurs rubs or clicks noted Abdomen soft nontender bowel sounds are normoactive Lower extremities no clubbing cyanosis, nor edema appreciated bilaterally Skins significant scar tissue with some ulceration in the antecubital region bilaterally as well as multiple ulcerations on her feet bilaterally- as well as mild erythema to the distal lower extremities bilaterally Problem\Assessment\Plan Problems/Diagnosis: (1) Wound cellulitis # cellulitis of the antecubital region bilaterally, and bilateral feet # non healing wounds of the lower extremities bilaterally Continue IV vancmycin and ceftriaxone Arterial ultrasound was negative for arterial insufficiency bilaterally Venous ultrasound was negative for DVT bilaterally Awaiting wound care consult # angioedema of the face secondary to allergic reaction to Zosyn Nearly resolved # IV heroin use disorder Continue methadone Date of Service: Sep 08, 2025 Billing Provider: KIA SAM DO Common Visit Codes: [id number] INP/OBS CARE(HIGH) KIA SAM DO Sep 08, 2025 20:18
[2025-09-08 22:00] VITALS: BP 103/57; PULSE 77; RESP 18; TEMP 99; O2SAT 96
[2025-09-09 06:46] VITALS: BP 127/78; PULSE 69; RESP 18; TEMP 98.2; O2SAT 100
[2025-09-09 07:00] VITALS: RESP 16
[2025-09-09 10:47] LABS: CREATININE 0.58 MG/DL (0.40-0.90); TOTAL CARBON DIOXIDE 28.4 MMOL/L (24-32); eCRCL 117 ML/MIN; eGFR > 90 ML/MIN
[2025-09-09 16:34] LABS: MEAN PLATELET VOLUME 7.2 FL (7.4-10.4); RED CELL DISTRIBUTION WIDTH 17.8 % (11.5-14.5)
[2025-09-09 18:00] VITALS: BP 110/71; PULSE 71; RESP 15; TEMP 97.4; O2SAT 98
[2025-09-09 19:00] VITALS: RESP 19; O2SAT 98
--- NOTE | 2025-09-09 19:13 | PROGRESS NOTE ---
Daily Progress Note Providers to CC ~ Antibiotic Timeout Antibiotic Ordered?: Yes Subjective The patient is angioedema has resolved, wound care consulted on the patient today. Erythema of her feet are improving Objective Vital Signs Date Time Temp Pulse Resp B/P (MAP) Pulse Ox O2 Delivery O2 Flow Rate FiO2 09/09/25 14:53 16 09/09/25 07:00 Room Air 09/09/25 06:46 98.2 69 127/78 (94) 100 09/08/25 22:00 0.0 Result Diagram: 09/09/25 1625 09/09/25 0946 Gen. No acute distress alert and oriented 4 Lungs clear to ascultation bilaterally, no wheezes rales or rhonchi appreciated Heart normal sinus rhythm no murmurs rubs or clicks noted Abdomen soft nontender bowel sounds are normoactive Lower extremities no clubbing cyanosis, nor edema appreciated bilaterally Skins significant scar tissue with some ulceration in the antecubital region bilaterally as well as multiple ulcerations on her feet bilaterally- as well as mild erythema to the distal lower extremities bilaterally Problem\Assessment\Plan Problems/Diagnosis: (1) Wound cellulitis # cellulitis of the antecubital region bilaterally, and bilateral feet # non healing wounds of the lower extremities bilaterally Continue IV vancmycin and ceftriaxone Arterial ultrasound was negative for arterial insufficiency bilaterally Venous ultrasound was negative for DVT bilaterally 09/09/2025 wound care nurse evaluated the patient today # angioedema of the face secondary to allergic reaction to Zosyn Resolved # IV heroin use disorder Continue methadone Disposition: Upon discharge the patient will follow up with [facility] outpatient wound care Date of Service: Sep 09, 2025 Billing Provider: KIA SAM DO Common Visit Codes: [id number] INP/OBS CARE(HIGH) KIA SAM DO Sep 09, 2025 19:13
[2025-09-09 22:00] VITALS: BP 113/60; PULSE 76; RESP 14; TEMP 98.1; O2SAT 98
[2025-09-10 05:35] LABS: CREATININE 0.73 MG/DL (0.40-0.90); TOTAL CARBON DIOXIDE 28.3 MMOL/L (24-32); eCRCL 93 ML/MIN; eGFR 89 ML/MIN
[2025-09-10 07:00] VITALS: RESP 19; O2SAT 98
[2025-09-10 10:34] VITALS: BP 125/59; PULSE 74; RESP 12; TEMP 99.3; O2SAT 97
--- NOTE | 2025-09-10 12:40 | PROGRESS NOTE ---
Daily Progress Note Providers to CC ~ Antibiotic Timeout Antibiotic Ordered?: Yes Subjective No acute events overnight. Patient examined at bedside. No new complaints, not in acute distress. Patient denies chest pain, sob, palpitations, abdominal pain, n/v/d. Vss, labs unremarkable. Continue PT. Objective Vital Signs Date Time Temp Pulse Resp B/P (MAP) Pulse Ox O2 Delivery O2 Flow Rate FiO2 09/10/25 10:34 99.3 74 12 125/59 (81) 97 09/10/25 07:00 Room Air 09/08/25 22:00 0.0 Result Diagram: 09/09/25 1625 09/10/25 0441 Physical Exam General: Generalized weakness, A&Ox 3, NAD HEENT: Normocephalic, PERRLA Neck: Supple, trachea midline, no JVD Chest: Clear to auscultation bilaterally Cardiovascular: RRR, S1&S2 GI: Soft and nontender Extremities: No cyanosis/clubbing/or edema STEAM DISTRIBUTION SUPERVISOR: CN II-XII intact, no focal deficits Musculoskeletal: No paraspinal muscle tenderness, no muscle spasm Skin: Ulceration left arm approx 40cm x 1.5cm, ulceration right arm approx [id number], Right dorsal foot ulceration and drainage approx 3.5x3cm, lleft medial ankle ulceration approx 1x2cm Problem\Assessment\Plan Problems/Diagnosis: (1) Wound cellulitis Assessment & Plan Cellulitis of BLE and BUE Non healing wounds, failed outpatient management Hx IVDU Hx IV heroin use Anemia, microcytic -continue IV vancomycin and ceftriaxone, continue home methadone, social media project manager/substance use navigator consult -arterial ultrasound was negative for arterial insufficiency bilaterally -follow iron studies Angioedema of the face secondary to allergic reaction to Zosyn -discontinued Zosyn and sx resolved DVT/VTE Prophylaxis: heparin Code Status: Full Code Date of Service: Sep 10, 2025 Billing Provider: ABDIFATAH AUSTIN Common Visit Codes: [id number] INP/OBS CARE(HIGH) ABDIFATAH AUSTIN Sep 10, 2025 12:40
[2025-09-10 17:03] LABS: MEAN PLATELET VOLUME 7.1 FL (7.4-10.4); RED CELL DISTRIBUTION WIDTH 18.0 % (11.5-14.5)
[2025-09-10 17:25] LABS: % IRON SATURATION 6 % (11-46)
[2025-09-10 18:00] VITALS: BP 122/64; PULSE 76; RESP 16; TEMP 97.8; O2SAT 99
[2025-09-10 18:46] LABS: LYMPHOCYTES % (MANUAL) 41.0 % (21-51); MONOCYTES % (MANUAL) 9.0 % (2-12); NEUTROPHILS % (MANUAL) 50.0 % (42-75)
[2025-09-10 18:47] LABS: PLATELET ESTIMATE NORMAL
[2025-09-10 19:00] VITALS: RESP 16
[2025-09-10] MEDS: heparin, porcine 5000 units/ml vial SQ SCH (20:01)
[2025-09-10 22:00] VITALS: BP 122/64; PULSE 76; RESP 16; TEMP 97.8; O2SAT 99
[2025-09-11] VITALS (7 sets, daily range): BP systolic 121–138; BP diastolic 62–73; PULSE 64–74; RESP 14–16; TEMP 97.5–98.4; O2SAT 96–98
[2025-09-11 07:09] LABS: MEAN PLATELET VOLUME 7.7 FL (7.4-10.4); RED CELL DISTRIBUTION WIDTH 17.2 % (11.5-14.5)
[2025-09-11 07:43] LABS: CREATININE 0.61 MG/DL (0.40-0.90); TOTAL CARBON DIOXIDE 28.0 MMOL/L (24-32); eCRCL 111 ML/MIN; eGFR > 90 ML/MIN
[2025-09-11 08:28] LABS: EOSINOPHILS % (MANUAL) 2.0 % (0-6); LYMPHOCYTES % (MANUAL) 51.0 % (21-51); MONOCYTES % (MANUAL) 12.0 % (2-12); NEUTROPHILS % (MANUAL) 35.0 % (42-75)
[2025-09-11 08:29] LABS: PLATELET ESTIMATE NORMAL
--- NOTE | 2025-09-11 15:10 | PROGRESS NOTE ---
Daily Progress Note Providers to CC ~ Antibiotic Timeout Antibiotic Ordered?: Yes Subjective No acute events overnight. Patient examined at bedside. No new complaints, not in acute distress. Patient denies chest pain, sob, palpitations, abdominal pain, n/v/d. Vss, labs unremarkable. Pending rehab. 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 ENGINEER: CN II-XII intact, no focal deficits Musculoskeletal: No paraspinal muscle tenderness, no muscle spasm Skin: Ulceration left arm approx 40cm x 1.5cm, ulceration right arm approx [id number], Right dorsal foot ulceration and drainage approx 3.5x3cm, left medial ankle ulceration approx 1x2cm Problem\Assessment\Plan Problems/Diagnosis: (1) Wound cellulitis Assessment & Plan Cellulitis of BLE and BUE Non healing wounds, failed outpatient management Hx IVDU Hx IV heroin use Anemia, microcytic Fe-deficiency anemia -continue IV vancomycin and ceftriaxone, continue home methadone, social services manager/substance use navigator consult -arterial ultrasound was negative for arterial insufficiency bilaterally 09/11: wound culture Staphylococcus aureus, iron study consistent with LIZBETH, start iron infusion, follow CT, continue wound care and abx Angioedema of the face secondary to allergic reaction to Zosyn -discontinued Zosyn and sx resolved DVT/VTE Prophylaxis: heparin Code Status: Full Code Disposition: rehab Date of Service: Sep 11, 2025 Billing Provider: ABDIFATAH AUSTIN Common Visit Codes: [id number] INP/OBS CARE(HIGH) ABDIFATAH AUSTIN Sep 11, 2025 15:10
[2025-09-11] MEDS ORDERED: iohexol 350 MG/ML 50ML vial IV ONE (16:51)
--- NOTE | 2025-09-11 18:08 | RADIOLOGY REPORT ---
COMPUTERIZED TOMOGRAPHY BILATERAL LOWER EXTREMITIES WITH CONTRAST REASON FOR EXAM: cellulitis, bilateral lower extremities COMPARISON: None TECHNIQUE: The exam was performed on a Multidetector scanner. Spiral scans were acquired from the distal femurs through bilateral feet after administration of IV contrast. 2-D coronal and sagittal reformatted images were provided. Radiation optimization: All CT scans at this facility use at least one of these dose optimization techniques: Automated exposure control mA and/or kV adjustment per patient size (includes targeted exams where dose is matched to clinical indication) or iterative reconstruction. CONTRAST ADMINISTRATION: 150 mL omnipaque 350 intravenously RADIATION DOSE: CTDI: 8 mGy DLP: 508 mGy-cm FINDINGS: Bilateral popliteal, anterior tibial, posterior tibial, peroneal, and dorsal pedal arteries appear patent. There is no popliteal artery aneurysm. There is focal skin thickening at the medial aspect of the left ankle. There is focal skin thickening over the dorsum of the right midfoot. There is mild subcutaneous edema in the right calf. No free fluid or fluid collection is identified in either lower extremity. There is no significant knee or ankle effusion. There is severe tricompartmental joint space narrowing with osteophyte formation at both knees. No cortical erosion is identified to suggest osteomyelitis. IMPRESSION: Focal skin thickening of the medial left ankle and the dorsum of the right midfoot. No fluid collection is identified. No evidence of osteomyelitis.
[2025-09-11] MEDS: normal saline 500ml IV soln 500 ML IV ONE (20:59)
[2025-09-11] MEDS: iron dextran complex inj. 25 MG in normal saline 100ml IV soln 100 ML IV ONE (21:29)
[2025-09-11] MEDS: iron dextran complex inj. 75 MG in normal saline 100ml IV soln 100 ML IV ONE (23:23)
[2025-09-12] MEDS: iron dextran complex inj. 25 MG in normal saline 50ml IV soln 50 ML IV ONE (03:33)
[2025-09-12] MEDS: iron dextran complex inj. 75 MG in normal saline 100ml IV soln 100 ML IV ONE (03:33)
[2025-09-12 03:37] VITALS: O2SAT 98
[2025-09-12 04:48] LABS: MEAN PLATELET VOLUME 7.5 FL (7.4-10.4); RED CELL DISTRIBUTION WIDTH 17.6 % (11.5-14.5)
[2025-09-12 05:09] LABS: CREATININE 0.59 MG/DL (0.40-0.90); TOTAL CARBON DIOXIDE 30.5 MMOL/L (24-32); eCRCL 115 ML/MIN; eGFR > 90 ML/MIN
[2025-09-12 06:51] VITALS: BP 100/53; PULSE 64; RESP 16; TEMP 98; O2SAT 97
[2025-09-12] MEDS: iron dextran complex inj. 100 MG in normal saline 100ml IV soln 100 ML IV SCH (07:49)
[2025-09-12 08:30] VITALS: RESP 16; O2SAT 97
[2025-09-12 08:38] LABS: EOSINOPHILS % (MANUAL) 4.0 % (0-6); LYMPHOCYTES % (MANUAL) 52.0 % (21-51); MONOCYTES % (MANUAL) 12.0 % (2-12); NEUTROPHILS % (MANUAL) 32.0 % (42-75); PLATELET ESTIMATE NORMAL
[2025-09-12 08:39] LABS: LARGE PLATELETS FEW
[2025-09-12 10:00] VITALS: BP 124/71; PULSE 64; RESP 16; TEMP 98.2; O2SAT 97
[2025-09-12 13:17] VITALS: RESP 16
[2025-09-12] MEDS ORDERED: FER325T PO (13:34)
[2025-09-12] MEDS ORDERED: LEVO750T68 PO (13:34)
--- NOTE | 2025-09-12 13:40 | DISCHARGE SUMMARY ---
Discharge Summary Providers to CC ~ Discharge Summary Admission Diagnosis: Cellulitis, failed outpatient management Hospital Course DATE OF ADMISSION: 09/07/25 DATE OF DISCHARGE: 09/12/25 Discharge Diagnosis\\Comment: Cellulitis of BLE and BUE, chronic Non healing wounds, failed outpatient management Hx IVDU Hx IV heroin use Anemia, microcytic Fe-deficiency anemia Operations\\Procedures: None Consultants: None Complications: None Condition on DC: Stable New Medications: Ferrous Sulfate (Ferrous Sulfate) 325 Mg (65 Mg Iron) Tablet 1 TAB PO DAILY for 90 Days, #90 TAB 0 Refills Levofloxacin (Levofloxacin) 750 Mg Tablet 750 MG PO DAILY for 7 Days, #7 TAB Continued Medications: Gabapentin (Neurontin) 300 Mg Capsule 300 MG PO TID, CAP Methadone Hcl* (Dolophine*) 10 Mg Tablet 80 MG PO DAILY, TAB Ondansetron Hcl (Zofran) 4 Mg Tablet 4 MG PO Q8H PRN for nausea, #20 TAB Discharge Summary: History of Present Illness From H&P: "This is a 40-year-old female with history of IV drug use, chronic wound in bilateral foot came to the ER with worsening pain in the wound, increased discharge, increased redness for the last several days. She has history of venous ulcers which started in May and has been following up with [facility] every Tuesday. She dresses her wound every day, the last two days she has been doing that 4 times a day because of increased purulent discharge. She was not able to ambulate because of increased pain. She was recently on 10 day course of antibiotics, stopped last week. She was also admitted at [facility] and received IV antibiotics for few days. She has never seen a vascular surgeon. Reports fever last night. She also has scarring on her right hand because of history of IV drug abuse." Hospital Course Diagnostic findings were notable for CT revealing cellulitis without evidence of fluid collection or osteomyelitis and microcytic anemia with iron studies consistent with iron-deficiency anemia. Pertinent negative findings were normal lactic acid, no findings of sepsis, negative arterial and venous ultrasound, x- ray without evidence of acute fracture. Patient was treated with empirical antibiotics, supportive care, and iron infusion. Wound culture resulted positive for pansensitive Staphylococcus aureus. Patient did not experience further complications throughout the entire hospital stay and remained clinically and hemodynamically stable. Patient was seen and examined on the day of discharge. On day of discharge, vss and labs unremarkable. Blood cultures resulted negative. All labs, diagnostic workups, discharge plan discussed with patient in details during visit before discharge. All questions and concerns answered to the best of my professional knowledge. Patient is to be discharged to home to self and to follow-up with PCP within 2 weeks. Patient is referred to outpatient Wound Care Clinic upon discharge. Physical Exam General: Generalized weakness, A&Ox 3, NAD HEENT: Normocephalic, PERRLA Neck: Supple, trachea midline, no JVD Chest: Clear to auscultation bilaterally Cardiovascular: RRR, S1&S2 GI: Soft and nontender Extremities: No cyanosis/clubbing/or edema COMPUTER NETWORKER: CN II-XII intact, no focal deficits Musculoskeletal: No paraspinal muscle tenderness, no muscle spasm Skin: Ulceration left arm approx 40cm x 1.5cm, ulceration right arm approx [id number], Right dorsal foot ulceration and drainage approx 3.5x3cm, left medial ankle ulceration approx 1x2cm *Problems/Diagnosis: (1) Wound cellulitis Status: Acute Total Time Spent on D/C: > 30 Minutes Date of Service: Sep 12, 2025 Billing Provider: ABDIFATAH AUSTIN Common Visit Codes: [id number] DISCH DAY >30min ABDIFATAH AUSTIN Sep 12, 2025 13:40
[2025-09-14] MEDS ORDERED: VANCOMYCIN LEVEL IV ONE (12:30)
== END 2025-09-12 15:45 | disposition home or self-care (01) | DRG 811 ==
LOC: ER 20:51 → ED HOLD 09-07 01:42 → EDBEDREQ 09-07 05:01 → SUR 3N 09-07 07:25
PROVIDERS: ADMIT Internal Medicine Pulmonary Disease; ATTEND Family Medicine
PROC: BQ2S1ZZ Computerized Tomography (CT Scan) of Left Lower Extremity using Low Osmolar Contrast (ICD-10-PCS; principal; 2025-09-11)
PROC: BQ2R1ZZ Computerized Tomography (CT Scan) of Right Lower Extremity using Low Osmolar Contrast (ICD-10-PCS; 2025-09-11)
DX: T78.3XXA Angioneurotic edema, initial encounter (principal); L03.115 Cellulitis of right lower limb; S81.801A Unspecified open wound, right lower leg, initial encounter; L97.329 Non-pressure chronic ulcer of left ankle with unspecified severity; F19.10 Other psychoactive substance abuse, uncomplicated; D50.8 Other iron deficiency anemias; L03.116 Cellulitis of left lower limb; T36.0X5A Adverse effect of penicillins, initial encounter; S81.802A Unspecified open wound, left lower leg, initial encounter; X58.XXXA Exposure to other specified factors, initial encounter; L97.519 Non-pressure chronic ulcer of other part of right foot with unspecified severity; Y84.8 Other medical procedures as the cause of abnormal reaction of the patient, or of later complication, without mention of misadventure at the time of the procedure; Y93.89 Activity, other specified; Y99.8 Other external cause status; Y92.89 Other specified places as the place of occurrence of the external cause; Z88.2 Allergy status to sulfonamides
CPT/HCPCS: 36415; 73600; 73620; 73701; 80053; 80202; 80305; 81025; 82728; 82948; 83036; 83540; 83550; 83605; 83735; 84703; 85007; 85008; 85025; 85651; 86140; 87040; 87070; 87075; 87077; 87081; 87186; 93306; 93925; 93970; 97116; 97161; 97530; 99285; A4620; A6196; A6212; A6223; A6258; A6446; A6449; G0378; J0692; J0696; J1200; J1644; J1750; J2270; J2405; J2543; J3373; J3374; J7030; J7040; Q0163; Q9967